=== PATIENT | male | born 1985 | race Caucasian/White ===

== ENCOUNTER 2017-11-25 20:18 | Inpatient (IN) | payer BC ==
[~2017-11-25] VITALS: Ht 167.6 cm; Wt 74.8 kg
[2017-11-25 20:20] VITALS: BP 133/74
--- NOTE | 2017-11-25 20:30 | NUR ---
PT PRESENTS TO ED WITH C/O RIGHT FLANK PAIN AND BLACK TARY STOOL X5 DAYS. PT ALSO C/O FEELING INTERMITTENT DIZZINESS AND HEART PALPIATIONS. RIGHT FLANK PAIN 5/10. HR EVEN AND REGULAR, SINUS TACH AT 107, LUNGS CLEAR BILAT THROUGHOUT. PT DENIES N/V/D, NO CHANGE IN URINATION. PT DENIES BRIGHT RED BLOOD IN STOOL. PT A&OX4. POSITIONED IN BED FOR COMFORT. HOB ELEVATED WITH SIDE RAILS UP. ER MD AWARE. CONTINUE TO MONITOR.
--- NOTE | 2017-11-25 20:30 | NUR ---
PATIENT AMBULATED TO ER BED 3.
--- NOTE | 2017-11-25 21:09 | NUR ---
Dr. Buck at bedside for rectal exam. Nurse Ada goode.
[2017-11-25 21:40] LABS: BASOPHILS % (AUTO) 0.5 % (0.0-2.0); EOSINOPHILS # (AUTO) 0.4 K/uL (0-0.4); EOSINOPHILS % (AUTO) 3.7 % (0.0-4.0); HEMATOCRIT 23.9 % (36-52); HEMOGLOBIN 8.2 g/dL (12.0-18.0); LYMPHOCYTES % (AUTO) 38.7 % (20.5-51.1); MEAN CORPUSCULAR HEMOGLOBIN 30 pg (27-31); MEAN CORPUSCULAR HGB CONC 34 g/dL (33-37); MEAN CORPUSCULAR VOLUME 86.9 fL (80-94); MONOCYTES # (AUTO) 0.6 K/uL (0.8-1.0); MONOCYTES % (AUTO) 5.5 % (1.7-9.3); NEUTROPHILS # (AUTO) 5.3 K/uL (1.8-7.7); NEUTROPHILS % (AUTO) 51.6 % (42.2-75.2); PLATELET COUNT (AUTO) 224 K/uL (140-450); RED BLOOD CELL COUNT(AUTO) 2.75 MIL/uL (4.20-6.10); RED CELL DISTRIBUTION WIDTH 13.4 % (11.6-13.7); WHITE BLOOD COUNT (AUTO) 10.2 K/uL (4.8-10.8)
[2017-11-25 21:55] LABS: ANION GAP 4.8 (8-16); CARBON DIOXIDE 31.7 mmol/L (21-32); CREATININE 0.8 mg/dL (0.7-1.3); POTASSIUM 3.5 mmol/L (3.5-5.1)
[2017-11-25 22:01] LABS: ALBUMIN 3.5 g/dL (3.4-5.0); TOTAL BILIRUBIN 0.2 mg/dL (0.0-1.0)
[2017-11-25] MEDS ORDERED: NACL 0.9% 1,000 ML IV SCH (22:12)
[2017-11-25] MEDS ORDERED: HYDROcodone/APAP 5/325 MG 1 TAB TAB PO PRN (22:15)
[2017-11-25] MEDS ORDERED: LORazepam 2 MG/ML VIAL IM/IVP PRN (22:15)
[2017-11-25] MEDS ORDERED: DOCUSATE SODIUM 100 MG GELCAP PO PRN (22:15)
[2017-11-25] MEDS ORDERED: MORPHINE SULFATE 2 MG/ML SYR IVP PRN (22:15)
[2017-11-25] MEDS ORDERED: ACETAMINOPHEN 325 MG TAB PO PRN (22:15)
[2017-11-25] MEDS ORDERED: ZOLPIDEM 5 MG TAB PO PRN (22:15)
[2017-11-25] MEDS ORDERED: ONDANSETRON 4 MG/2 ML VIAL IM/IVP PRN (22:15)
--- NOTE | 2017-11-25 22:28 | NUR ---
Dr. Wilson evaluating patient at bedside.
--- NOTE | 2017-11-25 22:58 | NUR ---
REPORT GIVEN AND CARE TRANSFERED TO [facility] ROOM 104A. PT TRANSFERED VIA RLEMOYNE WITH VSS.
[2017-11-25 23:00] VITALS: BP 125/73
--- NOTE | 2017-11-25 23:00 | NUR ---
RECEIVED BEDSIDE REPORT FROM ETL ANALYST JOANA, PT AWAKE AND ALERT, ON RA, NO SIGNS OF ACUTE DISTRESS, FAMILY AT BEDSIDE, ABLE TO FOLLOW COMMANDS DURING ASSESSMENT, IV IN LEFT AC 20 G, SL, DRESSING INTACT AND PATENT. V/S TAKEN B/P 125/73, HR 97, RR 16, O2 SAT 98%, TEMP 98.9, DENIES PAIN AT THIS TIME. ABDOMEN IS SLIGHTLY DISTENDED ACCORDING TO PT AND FAMILY, SOFT NON-TENDER, DENIES PAIN DURING PALPATION, BOWEL SOUNDS PRESENT. EXPLAINED PLAN OF CARE UPDATED BOARD, WILL FOLLOW WITH MD ORDER. CALL LIGHT WITHIN REACH, BED IN LOWEST POSITION, YELLOW GOWN ON, FALL SOCKS, SIGN, AND WRIST BAND IN PLACE. SKIN INTACT. MRSA SCREEN COMPLETED AND SENT TO LAB, OFFERED FLU VACCINE, PT REFUSED FLU VACCINE STATED "IT MAKES ME SICK". EDUCATE PROVIDED.
[2017-11-25 23:10] LABS: PROTHROMBIN TIME 9.9 secs (10.8-13.4)
[2017-11-25 23:21] LABS: AMYLASE 104 U/L (25-115); HDL CHOLESTEROL 36 mg/dL (40-60); LDL (CALC) 80 mg/dL (60-100); LIPASE 219 U/L (73-393); MAGNESIUM 1.9 mg/dL (1.8-2.4); PHOSPHORUS 3.7 mg/dL (2.5-4.9); TRIGLYCERIDES 143 mg/dL (30-150)
--- NOTE | 2017-11-25 23:35 | NUR ---
ORDER FOR IV FLUIDS TO BE CHANGED FROM NS TO D5 AND 1/2 NS DUE TO PT BEING NPO, WILL FOLLOW WITH MD ORDER.
[2017-11-25 23:49] LABS: FREE T4 (FREE THYROXINE) 0.95 ng/dL (0.76-1.46); LACTATE DEHYDROGENASE 95 U/L (85-227); THYROID STIMULATING HORMONE 2.69 uIU/mL (0.34-3.74)
[2017-11-26] MEDS: DEXT 5% / NACL 0.45% 1,000 ML IV SCH ×2 (00:22→12:19)
--- NOTE | 2017-11-26 00:22 | NUR ---
TALKED TO DR FLETCHER REGARDING PTS IV FLUIDS, ORDER FOR D5 AND 1/2 NS AT 100 ML/HR. WILL FOLLOW WITH MD ORDERS.
[2017-11-26 00:39] LABS: APPEARANCE,URINE CLEAR (CLEAR); BILIRUBIN,URINE NEGATIVE (NEGATIVE); BLOOD, URINE NEGATIVE (NEGATIVE); COLOR,URINE YELLOW (YELLOW); LEUKOCYTE ESTERASE ,URINE NEGATIVE (NEGATIVE); NITRITE, URINE NEGATIVE (NEGATIVE); UGLUCOSE NEGATIVE (NEGATIVE)
[2017-11-26 00:49] LABS: BARBITURATE, URINE NEGATIVE ng/ml (NEG <=200); BENZODIAZEPINE, URINE NEGATIVE ng/mL (NEG <=200); CANNABINOID, URINE NEGATIVE ng/mL (NEG <=50); COCAINE, URINE NEGATIVE ng/mL (NEG <=300); OPIATE, URINE NEGATIVE ng/mL (NEG <=2000); PHENCYCLIDINE SCREEN,URINE NEGATIVE ng/mL (NEG <=25)
--- NOTE | 2017-11-26 01:30 | NUR ---
ORDER FOR CT SCAN OF ABDOMEN/PELVIS WITH AND W/O CONTRAST. CT SCAN ASSESSMENT COMPLETED, PT SIGNED CONSENT AND PLACED IN CHART, TICKET TO RIDE IN CHART, CALLED RADIOLOGY SPOKE WITH TENNILLE, SHE WILL GIVE ORAL CONTRAST AND PERFUMER PATIENT IN 2 HOURS, NOTED PT HAS PATENT IV IN LEFT AC 20 G, PATENT. WILL CONTINUE TO MONITOR.
--- NOTE | 2017-11-26 03:59 | NUR ---
PATIENT C/O VALLADARES 6/10, THROBBING, AND PREVENTING PT FROM RESTING. MEDICATED ACCORDING TO MD ORDER WITH NORCO. WILL CONTINUE TO MONITOR, V/S STABLE.
[2017-11-26 04:00] VITALS: BP 115/66
[2017-11-26] MEDS ORDERED: HYDROcodone/APAP 5/325 MG 1 TAB TAB ONE (04:03)
--- NOTE | 2017-11-26 04:59 | NUR ---
PT SLEEPING IN BED, NO SIGNS OF DISTRESS, CALL LIGHT WITHIN REACH, BED IN LOWEST POSITION, WILL CONTINUE TO MONITOR.
--- NOTE | 2017-11-26 06:27 | NUR ---
PATIENT HAS BEEN SCREENED AND CATEGORIZED MODERATE NUTRITION RISK. PATIENT WILL BE SEEN WITHIN 3-5 DAYS OF ADMISSION. 11/27/17-11/29/17 CHARLENE BRYANT MS, RDN
--- NOTE | 2017-11-26 07:15 | NUR ---
ENDORSED PT TO DAY SHIFT NURSE, PT STABLE.
[2017-11-26 07:23] LABS: CARBON DIOXIDE 32.5 mmol/L (21-32); CREATININE 0.8 mg/dL (0.7-1.3); POTASSIUM 3.5 mmol/L (3.5-5.1)
[2017-11-26 07:24] LABS: MAGNESIUM 1.9 mg/dL (1.8-2.4); PHOSPHORUS 3.1 mg/dL (2.5-4.9)
[2017-11-26] MEDS ORDERED: KETOROLAC 30 MG/ML VIAL ONE (07:37)
[2017-11-26] MEDS ORDERED: ONDANSETRON 4 MG/2 ML VIAL ONE (07:38)
[2017-11-26 07:50] LABS: BASOPHILS % (AUTO) 0.5 % (0.0-2.0); EOSINOPHILS # (AUTO) 0.3 K/uL (0-0.4); EOSINOPHILS % (AUTO) 3.8 % (0.0-4.0); LYMPHOCYTES # (AUTO) 2.8 K/uL (2.0-11.5); LYMPHOCYTES % (AUTO) 37.1 % (20.5-51.1); MEAN CORPUSCULAR HEMOGLOBIN 30 pg (27-31); MEAN CORPUSCULAR HGB CONC 35 g/dL (33-37); MEAN CORPUSCULAR VOLUME 86.9 fL (80-94); MONOCYTES # (AUTO) 0.4 K/uL (0.8-1.0); MONOCYTES % (AUTO) 5.5 % (1.7-9.3); NEUTROPHILS # (AUTO) 4.1 K/uL (1.8-7.7); NEUTROPHILS % (AUTO) 53.1 % (42.2-75.2); PLATELET COUNT (AUTO) 220 K/uL (140-450); RED BLOOD CELL COUNT(AUTO) 2.64 MIL/uL (4.20-6.10); RED CELL DISTRIBUTION WIDTH 13.5 % (11.6-13.7); WHITE BLOOD COUNT (AUTO) 7.7 K/uL (4.8-10.8)
[2017-11-26 08:00] VITALS: BP 111/67
--- NOTE | 2017-11-26 08:51 | NUR ---
PATIENT LEFT THE UNIT FOR EGD
[2017-11-26] MEDS: fentaNYL 0.05 MG/ML VIAL ONE ×2 (08:56→08:59)
[2017-11-26] MEDS ORDERED: diphenhydrAMINE 50 MG/ML VIAL ONE (08:56)
[2017-11-26] MEDS: MIDAZOLAM 2 MG/2 ML VIAL ONE ×2 (08:56→08:59)
--- NOTE | 2017-11-26 09:25 | NUR ---
PATIENT BACK FROM EGD. PATIENT ASLEEP BUT AROUSABLE. BP 94/54 HR 82 O2 SAT 100% AT THIS TIME. WILL CONTINUE TO MONITOR
[2017-11-26] MEDS ORDERED: SODIUM FERRIC GLUCONATE 125 MG in NACL 0.9% 100 ML IV ONE (10:15)
[2017-11-26] MEDS: SODIUM FERRIC GLUCONATE 125 MG in NACL 0.9% 100 ML IV SCH (10:27)
[2017-11-26] MEDS: PANTOPRAZOLE 40 MG INJ VIAL IVP SCH (10:27)
[2017-11-26 12:00] VITALS: BP 93/51
--- NOTE | 2017-11-26 14:05 | NUR ---
PATIENT AWAKE IN BED, TALKING WITH HIS . NO S/S OF DISTRESS NOTED
--- NOTE | 2017-11-26 14:25 | NUR ---
PATIENT AMBULATING AROUND THE UNIT. NO S/S OF DISTRESS NOTED
[2017-11-26 16:00] VITALS: BP 105/56
--- NOTE | 2017-11-26 19:30 | NUR ---
PATIENT REPORT GIVEN AT BEDSIDE. PATIENT ENDORSED IN STABLE CONDITION
--- NOTE | 2017-11-26 19:31 | NUR ---
RECEIVED BEDSIDE REPORT FROM NIGHT NURSE. PT ON TELE. PT AWAKE,ALERT, ORIENTED X 4, AMBULATORY. PT DENIES PAIN, NO RESPIRATORY DISTRESS. HAS IV FLUID INFUSING ON L AC, G 20, PATENT, AND INFUSING WELL.PT SKIN INTACT. PT ON LOW BED POSITION, CALL LIGHT WITHIN REACH. WILL CONTINUE MONITOR.
[2017-11-26 20:00] VITALS: BP 115/73
--- NOTE | 2017-11-26 21:00 | NUR ---
CALLED DR. HEAD ON IV INFUSION AND SHE CHANGED ORDER TO NS @ 10 ML/HR
[2017-11-26] MEDS ORDERED: NACL 0.9% 1,000 ML IV SCH (21:10)
--- NOTE | 2017-11-26 23:00 | NUR ---
FREQUENT ROUNDING DONE. PT ASLEEP. PT IS NOT IN RESPIRATORY DISTRESS, STABLE. NO COMPLAINTS OF PAIN.WILL CONTINUE TO MONITOR.
[2017-11-27] VITALS: BP 108/72
--- NOTE | 2017-11-27 02:00 | NUR ---
FREQUENT ROUNDING DONE. PT WENT TO BATHROOM TO URINATE. PT STABLE, NOT IN RESPIRATORY DISTRESS. NO COMPLAINTS OF PAIN. WILL CONTINUE TO MONITOR.
[2017-11-27 03:52] VITALS: BP 98/57
--- NOTE | 2017-11-27 04:00 | NUR ---
PT ROUNDING DONE. PT ASLEEP IN STABLE CONDITION.
--- NOTE | 2017-11-27 07:15 | NUR ---
RECEIVED PATIENT REPORT AT BEDSIDE. PATIENT AWAKE IN BED. NO S/S OF DISTRESS NOTED. NO C/O PAIN. PATIENT ON TELE MONITORING. BED LOWERED WITH CALL LIGHT WITHIN REACH. WILL CONTINUE TO MONITOR
--- NOTE | 2017-11-27 07:15 | NUR ---
ENDORSED PT IN STABLE CONDITION TO AM NURSE.
[2017-11-27 07:31] LABS: MAGNESIUM 2.1 mg/dL (1.8-2.4); PHOSPHORUS 4.6 mg/dL (2.5-4.9)
[2017-11-27 07:34] LABS: BASOPHILS % (AUTO) 0.4 % (0.0-2.0); EOSINOPHILS # (AUTO) 0.4 K/uL (0-0.4); EOSINOPHILS % (AUTO) 5.6 % (0.0-4.0); HEMATOCRIT 22.3 % (36-52); HEMOGLOBIN 7.7 g/dL (12.0-18.0); LYMPHOCYTES # (AUTO) 2.7 K/uL (2.0-11.5); LYMPHOCYTES % (AUTO) 40.7 % (20.5-51.1); MEAN CORPUSCULAR HEMOGLOBIN 30 pg (27-31); MEAN CORPUSCULAR HGB CONC 35 g/dL (33-37); MEAN CORPUSCULAR VOLUME 87.4 fL (80-94); MONOCYTES # (AUTO) 0.4 K/uL (0.8-1.0); MONOCYTES % (AUTO) 5.4 % (1.7-9.3); NEUTROPHILS # (AUTO) 3.2 K/uL (1.8-7.7); NEUTROPHILS % (AUTO) 47.9 % (42.2-75.2); PLATELET COUNT (AUTO) 227 K/uL (140-450); RED BLOOD CELL COUNT(AUTO) 2.55 MIL/uL (4.20-6.10); RED CELL DISTRIBUTION WIDTH 13.7 % (11.6-13.7); WHITE BLOOD COUNT (AUTO) 6.7 K/uL (4.8-10.8)
[2017-11-27 07:40] VITALS: BP 116/66
[2017-11-27] MEDS ORDERED: FUROSEMIDE 20 MG TAB PO PRN (08:00)
[2017-11-27] MEDS ORDERED: ACETAMINOPHEN 325 MG TAB PO PRN (08:00)
[2017-11-27] MEDS ORDERED: FERROUS SULFATE 325 MG TABEC PO SCH (08:00)
[2017-11-27 08:08] LABS: T4 (THYROXINE) 7.5 ug/dL (4.5-12.0)
[2017-11-27 08:17] LABS: ANION GAP 7.5 (8-16); CARBON DIOXIDE 30.4 mmol/L (21-32); CREATININE 0.8 mg/dL (0.7-1.3); POTASSIUM 3.9 mmol/L (3.5-5.1)
[2017-11-27] MEDS ORDERED: ASCORBIC ACID 500 MG TAB PO SCH (09:00)
[2017-11-27] MEDS: PANTOPRAZOLE 40 MG INJ VIAL IVP SCH (09:39)
[2017-11-27] MEDS: SODIUM FERRIC GLUCONATE 125 MG in NACL 0.9% 100 ML IV SCH (10:02)
[2017-11-27] MEDS ORDERED: FER325 PO (10:04)
[2017-11-27] MEDS ORDERED: VITC500 PO (10:04)
[2017-11-27] MEDS ORDERED: DOCU-299 PO (10:04)
[2017-11-27] MEDS ORDERED: FAMO-90 PO (10:04)
[2017-11-27] MEDS ORDERED: CLAR500T PO (11:55)
[2017-11-27] MEDS ORDERED: AMOX500C25 PO (11:59)
[2017-11-27] MEDS ORDERED: PANT40EC PO (11:59)
[2017-11-27 12:00] VITALS: BP 105/74
[2017-11-27 15:40] VITALS: BP 121/71
--- NOTE | 2017-11-27 15:40 | NUR ---
BLOOD TRANSFUSION DONE. PATIENT AWAKE AND ALERT. NO S/S OF DISTRESS NOTED. TEMP 98.0, BP 121/71 HR 89 O2 SAT 100% ON ROOM AIR. DR CHAPA NOTIFIED. PER DR, NO NEED TO ADMINISTER LASIX
[2017-11-27 16:20] LABS: BASOPHILS % (AUTO) 0.5 % (0.0-2.0); EOSINOPHILS # (AUTO) 0.4 K/uL (0-0.4); EOSINOPHILS % (AUTO) 4.4 % (0.0-4.0); HEMATOCRIT 29.4 % (36-52); LYMPHOCYTES % (AUTO) 32.3 % (20.5-51.1); MEAN CORPUSCULAR HEMOGLOBIN 29 pg (27-31); MEAN CORPUSCULAR HGB CONC 34 g/dL (33-37); MEAN CORPUSCULAR VOLUME 84.7 fL (80-94); MONOCYTES # (AUTO) 0.5 K/uL (0.8-1.0); MONOCYTES % (AUTO) 5.3 % (1.7-9.3); NEUTROPHILS # (AUTO) 5.4 K/uL (1.8-7.7); NEUTROPHILS % (AUTO) 57.5 % (42.2-75.2); PLATELET COUNT (AUTO) 272 K/uL (140-450); RED BLOOD CELL COUNT(AUTO) 3.47 MIL/uL (4.20-6.10); RED CELL DISTRIBUTION WIDTH 16.9 % (11.6-13.7); WHITE BLOOD COUNT (AUTO) 9.4 K/uL (4.8-10.8)
--- NOTE | 2017-11-27 16:55 | NUR ---
PATIENT DISCHARGED TO HOME. DISCHARGE INSTRUCTIONS AND DISCHARGE PRESCRIPTIONS GIVEN. PATIENT VERBALIZED UNDERSTANDING IV LINE DISCONTINUED. TELE MONITOR TAKEN OFF. PATIENT LEFT WITH ALL HIS BELONGINGS AND DISCHARGE PAPERS. PATIENT LEFT IN STABLE CONDITION
[2017-11-29 06:27] LABS: FOLIC ACID 16.2 ng/mL (>3.0)
--- NOTE | 2017-11-29 07:16 | NUR ---
[facility] FAXED ER REPORT, H&P, OR REPORT, MUSIC NOTE AND DISCHARGE SUMMARY TO CATY TAO ON 11/28/17 . REF NUMBER [id number].
== END 2017-11-27 16:55 | disposition home or self-care (01) | DRG 393 ==
LOC: MED 20:18 → MTU 22:15
PROVIDERS: ADMIT General Practice; ATTEND General Practice
PROC: 0DB78ZX Excision of Stomach, Pylorus, Via Natural or Artificial Opening Endoscopic, Diagnostic (ICD-10-PCS; principal; 2017-11-26 09:45)
PROC: 30233N1 Transfusion of Nonautologous Red Blood Cells into Peripheral Vein, Percutaneous Approach (ICD-10-PCS; 2017-11-27)
DX: K31.7 Polyp of stomach and duodenum (principal); K25.4 Chronic or unspecified gastric ulcer with hemorrhage; D62 Acute posthemorrhagic anemia; K29.90 Gastroduodenitis, unspecified, without bleeding; K21.9 Gastro-esophageal reflux disease without esophagitis; F17.210 Nicotine dependence, cigarettes, uncomplicated; F12.90 Cannabis use, unspecified, uncomplicated; E66.3 Overweight; B96.81 Helicobacter pylori [H. pylori] as the cause of diseases classified elsewhere; F10.10 Alcohol abuse, uncomplicated; G43.909 Migraine, unspecified, not intractable, without status migrainosus; Z88.6 Allergy status to analgesic agent; Z83.3 Family history of diabetes mellitus; Z82.49 Family history of ischemic heart disease and other diseases of the circulatory system; Z68.26 Body mass index [BMI] 26.0-26.9, adult; Z79.82 Long term (current) use of aspirin
CPT/HCPCS: 36415; 71045; 80048; 80053; 80305; 81003; 82140; 82150; 82550; 82607; 82728; 82746; 82977; 83036; 83540; 83615; 83690; 83735; 83880; 84100; 84134; 84436; 84439; 84443; 85025; 85045; 85610; 85730; 86677; 86886; 86900; 86901; 86920; 87081; 93005; 99285; C9113; G0482; J1200; J1885; J2250; J2405; J2916; J3010; J7030; P9016; Q0092; Q0163; Q9967